=== PATIENT | male | born 1980 | race Caucasian/White ===

== ENCOUNTER 2017-10-24 18:33 | Emergency (ER) | payer MEDICAID ==
[~2017-10-24] VITALS: Ht 193 cm; Wt 93.0 kg
--- NOTE | 2017-10-24 19:06 | NUR ---
PT IS IN ROOM #2A. DR TA EVALUATED THE PT.
--- NOTE | 2017-10-24 19:24 | NUR ---
REPORT TAKEN FROM DAY SHIFT RN. ASSUMING PT CARE AT THIS TIME.
--- NOTE | 2017-10-24 19:39 | NUR ---
Patient discharged to home in stable conditon. Written and verbal after care instructions given. Patient verbalizes understanding of instructions. Pt ambulated from ER w/ steady gait. VSS. Pt took all personal belongings.
[2017-10-24 19:43] VITALS: BP 128/74
== END 2017-10-24 19:44 | disposition home or self-care (01) ==
LOC: ER 18:33
DX: R22.2 Localized swelling, mass and lump, trunk (principal)
CPT/HCPCS: 72125; A4663

== ENCOUNTER 2022-04-13 09:50 | Emergency (ER) | payer MEDICAID ==
[~2022-04-13] VITALS: Ht 195.6 cm; Wt 90.7 kg
[2022-04-13 10:32] LABS: HEMATOCRIT 45.2 % (36.7-47.1); MEAN CORPUSCULAR HEMOGLOBIN 31.5 uug (23.8-33.4); MEAN CORPUSCULAR VOLUME 91.1 fL (73.0-96.2); PLATELET COUNT (AUTO) 176 K/uL (152-348)
[2022-04-13 10:38] LABS: CARBON DIOXIDE 31 mmol/L (21-32); CHLORIDE 105 mmol/L (98-107); CREATININE 1.1 mg/dL (0.6-1.3); GLUCOSE 93 mg/dL (74-106); POTASSIUM 3.7 mmol/L (3.5-5.1); UREA NITROGEN, BLOOD 13 mg/dL (7-18)
--- NOTE | 2022-04-13 13:03 | NUR ---
IV removed intact, pressure dressing applied. Patient discharged to home in stable condition. Written and verbal after care instructions given. Patient verbalizes understanding of instructions. Stressed follow up or return to ER for worsening s/s.
== END 2022-04-13 13:14 | disposition home or self-care (01) ==
LOC: ER 09:50
DX: R07.9 Chest pain, unspecified (principal); Z82.3 Family history of stroke; Z80.43 Family history of malignant neoplasm of testis; I45.10 Unspecified right bundle-branch block; R03.0 Elevated blood-pressure reading, without diagnosis of hypertension
CPT/HCPCS: 36415; 71045; 84484; 85025; 93005; A4663

== ENCOUNTER 2023-07-13 01:26 | Emergency (ER) | payer SELFPAY ==
[~2023-07-13] VITALS: Ht 195.6 cm; Wt 93.0 kg
[2023-07-13] MEDS ORDERED: LORA0.5T48 PO (02:42)
[2023-07-13 02:58] VITALS: BP 137/86; O2SAT 98
[2023-07-13 02:58] LABS: BASOPHILS % (AUTO) 0.6 % (0.0-2.0); EOSINOPHILS # (AUTO) 0.1 K/uL (0.0-0.7); EOSINOPHILS % (AUTO) 1.5 % (0.0-7.0); HEMATOCRIT 45.2 % (36.7-47.1); HEMOGLOBIN 15.9 g/dL (12.5-16.3); LYMPHOCYTES % (AUTO) 40.3 % (20.5-51.5); MEAN CORPUSCULAR HEMOGLOBIN 31.6 uug (23.8-33.4); MEAN CORPUSCULAR HGB CONC 35 g/dL (32.5-36.3); MEAN CORPUSCULAR VOLUME 89.9 fL (73.0-96.2); MONOCYTES # (AUTO) 0.7 K/uL (0.1-1.30); MONOCYTES % (AUTO) 9.4 % (0.0-11.0); NEUTROPHILS # (AUTO) 3.6 K/uL (1.8-8.9); NEUTROPHILS % (AUTO) 48.2 % (38.5-71.5); PLATELET COUNT (AUTO) 164 K/uL (152-348); RED BLOOD CELL COUNT(AUTO) 5.03 MIL/uL (4.06-5.63); RED CELL DISTRIBUTION WIDTH 13.4 % (12.1-16.2); WHITE BLOOD COUNT (AUTO) 7.4 K/uL (3.6-10.2)
[2023-07-13 03:10] LABS: DIFFERENTIAL COMMENT 1
[2023-07-13 03:17] LABS: CALCIUM 8.9 mg/dL (8.5-10.1); CREATININE 0.9 mg/dL (0.6-1.3); POTASSIUM 3.7 mmol/L (3.5-5.1)
[2023-07-13 03:31] LABS: THYROID STIMULATING HORMONE 1.975 mIU/mL (0.358-3.740)
== END 2023-07-13 02:59 | disposition home or self-care (01) ==
LOC: ER 01:33
DX: F41.9 Anxiety disorder, unspecified (principal); Z79.899 Other long term (current) drug therapy
CPT/HCPCS: 36415; 84443; 85025; 93005; A4606; A4663